=== PATIENT | male | born 1960 | race Caucasian/White ===

== ENCOUNTER 2023-03-28 09:41 | Outpatient (CLI) | payer OTHER, SELFPAY ==
--- NOTE | ~2023-03-28 | CT_ITS ---
Non-contrast CT scan of the Pelvis Clinical indication: Inguinal hernia Technique: 2.5 mm axial scans were obtained through the pelvis without intravenous or oral contrast. Dose reduction technique was used on this scan by utilizing automated exposure control and iterative reconstruction technique. The dose-length product (DLP) was 665.43 mGy-cm. Findings: Visualized bowel loops are unremarkable. No aortic aneurysm seen. No pelvic lymphadenopathy seen. Urinary bladder unremarkable. Prostate gland mildly enlarged. There are moderate bilateral fat-contai teresa inguinal hernias. No bowel involvement. No ascites. Impression: Moderate bilateral fat-containing inguinal hernias. Reviewed, dictated and finalized at location M. [facility] Impression: Moderate bilateral fat-containing inguinal hernias.
== END 2023-03-28 09:42 ==
PROVIDERS: PCP Surgery; Visit Provider Surgery
DX: K40.20 Bilateral inguinal hernia, without obstruction or gangrene, not specified as recurrent (principal)
CPT/HCPCS: 72192

== ENCOUNTER 2023-06-19 15:18 | Outpatient (CLI) | payer OTHER, SELFPAY ==
--- NOTE | 2023-06-19 15:30 | ECG_ITS ---
SEE SCANNED COPY FOR CONFIRMED REPORT MTDD
== END 2023-06-19 15:19 | disposition home or self-care (01) ==
LOC: ANHSURGERY 15:21
PROVIDERS: PCP Family Medicine; Visit Provider Surgery
DX: K40.20 Bilateral inguinal hernia, without obstruction or gangrene, not specified as recurrent (principal); I10 Essential (primary) hypertension; Z01.818 Encounter for other preprocedural examination
CPT/HCPCS: 36415; 86850; 86900; 86901; 93005

== ENCOUNTER 2023-08-24 11:31 | Outpatient (CLI) | payer OTHER, SELFPAY | END 2023-08-24 11:32 | disposition home or self-care (01) | PROVIDERS: PCP Family Medicine; Visit Provider Surgery | DX: K40.20 Bilateral inguinal hernia, without obstruction or gangrene, not specified as recurrent (principal) | CPT/HCPCS: 36415; 86850; 86900; 86901 ==

== ENCOUNTER 2023-08-28 01:50 | Day surgery (SDC) | payer OTHER, SELFPAY ==
--- NOTE | 2023-06-15 12:08 | PC.NURSE ---
Report to the Outpatient Waiting Room, entrance under the green pavilion located off [facility], at time _1000 on date __06/22/23 . Planned Procedure Time: __1200 . Time changes happen often and if your time is changed the preop area will call you the afternoon before. - You and your visitor will be asked to self-screen and do not enter if you have any COVID symptoms. - A mask is optional within the hospital at this time. Patients may have clear liquids (water, carbonated beverages, clear teas, apple juice) until 3 hours prior to surgery ( 9:00 AM)with a maximum of 20 ounces. - No food from midnight until time of surgery - Infants may have breast milk until 4 hours before surgery, infant formula 6 hours prior to surgery. - Children will be allowed to drink immediately following surgery. If applicable, please bring a bottle or sippy cup to assist with drinking. Juice, water, soda, and popsicles are readily available. For infants on formula, please bring formula the day of surgery. Pacifiers are allowed. Take the following medications with a SIP of water the morning of surgery: __METOPROLOL DO NOT STOP ANY OF YOUR OTHER PRESCRIPTION MEDICATIONS PRIOR TO SURGERY ?EXCEPT THE FOLLOWING Medications to discontinue per physician NONE Please no make-up, nail chinese, hairspray, perfume, deodorant, or body powder the day of surgery. No jewelry (including any body piercings) or valuables the day of surgery, leave them at home. Please take a shower or bath the night before, or the morning of, surgery with an antibacterial soap. Wear comfortable, loose fitting clothing. Children are encouraged to wear pajamas. - Jewelry must be removed prior to entering the operating room. Rings and piercings that are not removed may be cut off. - The hospital will not accept responsibility for valuables. - Please leave all valuables, including medications, at home the day of surgery. If you are going home after surgery, a licensed frontload driver must drive you home. - NO public transportation without another adult if you receive anesthesia. - We recommend that an adult stay with you for 24 hours following discharge. - We also recommend that you do not drive, make important decision, drink alcoholic beverages, or take any drugs that were not prescribed by your health care provider for at least 24 hours after your discharge time. Follow any additional instructions given to you from your surgeon. If you or anyone in your household have experienced Covid symptoms in the past week, please notify your surgeon or the nurse liaison at the phone number below for possible testing. Telephone instructions given to ___PATIENT and asked if any additional questions and then verbalized understanding. Patient advised to call surgeon office or pre surgery nurse liaison [phone] if any additional questions.
[2023-06-15 12:15] VITALS: BMI 30.7
[2023-08-24 11:13] VITALS: BMI 31.2
--- NOTE | 2023-08-24 11:27 | PC.NURSE ---
Report to the Outpatient Waiting Room, entrance under the green pavilion located off [facility], at time _0600_ on date _[id number]_. Planned Procedure Time: _0730_. Time changes happen often and if your time is changed the preop area will call you the afternoon before. - You and your visitor will be asked to self-screen and do not enter if you have any COVID symptoms. - A mask is optional within the hospital at this time. Patients may have clear liquids (water, carbonated beverages, clear teas, apple juice) until 3 hours prior to surgery with a maximum of 20 ounces. - No food from midnight until time of surgery Take the following medications with a SIP of water the morning of surgery: ____Metoprolol and Dronedarone DO NOT STOP ANY OF YOUR OTHER PRESCRIPTION MEDICATIONS PRIOR TO SURGERY ?EXCEPT THE FOLLOWING Medications to discontinue per physician Orlando says he was told to stop Xarelto 3 days before surgery. Date to take last xpvy___[id number] Please no make-up, nail swiss, hairspray, perfume, deodorant, or body powder the day of surgery. No jewelry (including any body piercings) or valuables the day of surgery, leave them at home. Please take a shower or bath the night before, or the morning of, surgery with an antibacterial soap. Wear comfortable, loose fitting clothing. - Jewelry must be removed prior to entering the operating room. Rings and piercings that are not removed may be cut off. - The hospital will not accept responsibility for valuables. - Please leave all valuables, including medications, at home the day of surgery. If you are going home after surgery, a licensed logging truck driver must drive you home. - NO public transportation without another adult if you receive anesthesia. - We recommend that an adult stay with you for 24 hours following discharge. - We also recommend that you do not drive, make important decision, drink alcoholic beverages, or take any drugs that were not prescribed by your health care provider for at least 24 hours after your discharge time. Follow any additional instructions given to you from your surgeon. If you or anyone in your household have experienced Covid symptoms in the past week, please notify your surgeon or the nurse liaison at the phone number below for possible testing. Telephone instructions given to ___Chris___and asked if any additional questions and then verbalized understanding. Patient advised to call surgeon office or pre surgery nurse liaison [phone] if any additional questions.
[2023-08-28] VITALS (9 sets, daily range): BP systolic 111–137; BP diastolic 67–87; PULSE 55–66; RESP 14–20; TEMP 36.1–36.3; O2SAT 96–100
[2023-08-28] MEDS: ACETAMINOPHEN 500 MG TABLET 1000 MG PO (06:30)
[2023-08-28] MEDS: LACTATED RINGERS 1,000 ML 30 ML IV CONT ×2 (06:45→09:41)
--- NOTE | 2023-08-28 07:13 | WPDANESEPPF ---
Anes - Initial Pre Proc Eval Procedure: Operation Date: 08/28/23 07:30 Proposed Procedures p Robotic Assisted Recurrent Right Inguinal Hernia Repair with Mesh, Left Inguinal Hernia Repair with Mesh - Claire Velez MD Date/Time: 08/28/23 07:13 Surgeon: Claire Velez MD Pre Op Diagnosis: Recurrent Rt Ing Hernia, Lt Ing Hernia Patient Data Age: 63 Gender: M Height: 1.73 m Weight: 94.15 kg Last Vital Signs Temp 97.4 F L 08/28/23 06:56 Pulse 66 08/28/23 06:56 Resp 16 08/28/23 06:56 BP 132/87 08/28/23 06:56 Pulse Ox 98 08/28/23 06:56 O2 Del Method Room Air 08/28/23 06:56 Allergies Allergy/AdvReac Type Severity Reaction Status Date / Time No Known Allergies Allergy Verified 08/28/23 06:18 Home Medications Medication Instructions Recorded Confirmed Type naproxen sodium 220 mg tablet 440 mg PO DAILY 07/11/22 08/28/23 History omeprazole magnesium 20 mg 20 mg PO DAILY 07/11/22 08/28/23 History tablet,delayed release fluticasone propionate 50 See Rx Instructions .Route 03/30/23 08/28/23 Rx mcg/actuation nasal .COMPLEX #48 grams spray,suspension atorvastatin 40 mg tablet 40 mg PO DAILY #90 tabs 05/03/23 08/28/23 Rx metoprolol succinate 50 mg See Rx Instructions .Route 08/01/23 08/28/23 Rx tablet,extended release 24 hr .COMPLEX #90 tabs dronedarone 400 mg tablet (Multaq) 400 mg PO BID 08/17/23 08/28/23 History losartan 100 mg tablet 100 mg PO DAILY 08/17/23 08/28/23 History rivaroxaban 20 mg tablet (Xarelto) 20 mg PO DAILY 08/17/23 08/28/23 History Patient hx anesthesia problems: none Family hx anesthesia problems: none Results Review: All pre-operative results and documents have been reviewed as part of the pre-operative evaluation. FORMERLY [facility] Past Medical History Medical History Essential (primary) hypertension Gastro-esophageal reflux disease with esophagitis, without bleeding Occlusion and stenosis of bilateral carotid arteries Prediabetes Pure hypercholesterolemia, unspecified Surgical History Surgical History Hx of hernia repair [place] teeth extracted Family History Family History Father A-fib Social History Social History Smoking status: Never smoker Alcohol intake: never Substance use: never Substance use type: does not use Do You Feel Safe in your Home?: Yes Lack of Transportation: No Lack of Food: Never True Current Housing: I Have Housing Concerned About Future Housing: No Difficulty Paying Gas/Electric Bills: No Difficulty Paying for Meds: No Currently Unemployed: No Education: High School Diploma/GED Difficulty w/ Childcare or Family Care: No Living arrangements: with family Occupation/Education: occupation Additional occupation/education comments: bean Gender identity (if verbalized by the patient): Male Sexual Orientation (if Verbalized by the Patient): Straight or Heterosexual Spiritual care concerns: No Anes - Eval Final PreProcedure Day of Procedure 08/28/23 07:13 Patient weight: overweight Heart: regular rate and rhythm Lungs: clear to auscultation Airway: Mallampati scale class III Neurological: alert and oriented Last oral intake: >/= 8 hours ASA classification: III Emergent: no Anesthetic plan: proceed Anesthesia type and monitoring: general and standard monitoring Results Review: All pre-operative results and documents have been reviewed as part of the pre-operative evaluation. HTN, hyperlipidemia, A fib by holter 16%, carotid w less than 50% plaque. 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 Informed Consent: The patient's anesthetic plan and its attendant risks and benefits were discussed with the patient/fa
[2023-08-28] MEDS: KETOROLAC 15 MG/ML VIAL (*BKC) IV PUSH (07:20)
--- NOTE | 2023-08-28 07:21 | PM.IMHP ---
H&P: HPI History of Present Illness Date/Time: 08/28/23 07:21 Chief Complaint: bilateral inguinal hernia, right recurrent Narrative: Orlando is a 63 y/o male who presents to the office for evaluation of an abdominal hernia at the request of Dr. Solomon. He reports history of right inguinal hernia repair many years ago. He feels as if the mesh is protruding out and he has to push the area back in, this causes a lot of discomfort as well. He does also notice nausea when he feels the bulge is protruding out. He does also have a small abdominal hernia that he states is asymptomatic. Pt had CT showing recurrent RIH and LIH. Review of Systems Review of Systems: All systems reviewed & are unremarkable except as noted in HPI and below PMFSH Past Medical History Medical History Essential (primary) hypertension Gastro-esophageal reflux disease with esophagitis, without bleeding Occlusion and stenosis of bilateral carotid arteries Prediabetes Pure hypercholesterolemia, unspecified Surgical History Surgical History Hx of hernia repair [place] teeth extracted Family History Family History Father A-fib Social History Social History Smoking status: Never smoker Alcohol intake: never Substance use: never Substance use type: does not use Do You Feel Safe in your Home?: Yes Lack of Transportation: No Lack of Food: Never True Current Housing: I Have Housing Concerned About Future Housing: No Difficulty Paying Gas/Electric Bills: No Difficulty Paying for Meds: No Currently Unemployed: No Education: High School Diploma/GED Difficulty w/ Childcare or Family Care: No Living arrangements: with family Occupation/Education: occupation Additional occupation/education comments: bean Gender identity (if verbalized by the patient): Male Sexual Orientation (if Verbalized by the Patient): Straight or Heterosexual Spiritual care concerns: No Meds Home Medications and Allergies Home Medications Medication Instructions Recorded Confirmed Type naproxen sodium 220 mg tablet 440 mg PO DAILY 07/11/22 08/28/23 History omeprazole magnesium 20 mg 20 mg PO DAILY 07/11/22 08/28/23 History tablet,delayed release fluticasone propionate 50 See Rx Instructions .Route 02/22/24 07/22/24 Rx mcg/actuation nasal .COMPLEX #48 grams spray,suspension atorvastatin 40 mg tablet 40 mg PO DAILY #90 tabs 05/03/23 08/28/23 Rx metoprolol succinate 50 mg See Rx Instructions .Route 08/01/23 08/28/23 Rx tablet,extended release 24 hr .COMPLEX #90 tabs dronedarone 400 mg tablet (Multaq) 400 mg PO BID 08/17/23 08/28/23 History losartan 100 mg tablet 100 mg PO DAILY 08/17/23 08/28/23 History rivaroxaban 20 mg tablet (Xarelto) 20 mg PO DAILY 08/17/23 08/28/23 History Allergies Allergy/AdvReac Type Severity Reaction Status Date / Time No Known Allergies Allergy Verified 08/28/23 06:18 Vital Signs Vital Signs - 24 hr 08/28/23 06:56 Temperature 36.3 C L Pulse Rate 66 Respiratory Rate 16 Blood Pressure 132/87 Pulse Oximetry 98 Oxygen Delivery Room Air Exam Const: General: cooperative, comfortable and no acute distress Resp: Auscultation: clear to auscultation bilaterally Cardio: Rate: regular rate Rhythm: regular rhythm GI: Inspection: normal to inspection GI Palp: No abdominal tenderness and Yes Soft to palpation Other: bilateral IH R>L Assessment and Plan Assessment and plan (1) Recurrent right inguinal hernia: Code(s): K40.91 - Unilateral inguinal hernia, without obstruction or gangrene, recurrent Status: Acute Assessment and Plan: will setup for robotic assisted repair c mesh (2) Left inguinal hernia: Code(s): K40.90 - Unilateral inguin
--- NOTE | 2023-08-28 07:24 | WPDHPUPDATE1 ---
History and Physical Update Update Date/Time: 08/28/23 07:24 History and Physical has been reviewed, including an updated exam of the patient. There are NO changes in the patient's condition. Risks, benefits, and alternatives have been discussed and questions answered. Patient agrees to proceed with procedure.
[2023-08-28] MEDS: ceFAZolin 2 GM/D5W 50 ML 2 GM/50 ML BAG IVPB (07:28)
[2023-08-28] MEDS: BUPIVACAINE/EPINEPHRINE 0.5% 10 ML VIAL 30 ML INFILTRATE (08:05)
--- NOTE | 2023-08-28 09:58 | W.PM.PROC2 ---
Procedure Note - Detailed Date of Procedure 08/28/23 Pre-op Diagnosis Recurrent Rt Ing Hernia, Lt Ing Hernia Post-op Diagnosis Other (left pantaloon inguinal hernia, right indirect hernia) Procedure Performed robotic assisted recurrent right inguinal hernia repair with mesh, robotic assisted left inguinal hernia repair with mesh Surgeon Claire Velez MD Anesthesia General Indications Pt is a 63 y/o M presenting c few mo h/o bulging, discomfort in R groin. Patient has had previous right inguinal hernia repair with mesh many years ago. Workup, including imaging, was significant for recurrent right inguinal hernia, as well left inguinal. Findings L pantaloon hernia, R recurrent direct hernia Description of Procedure Patient was brought into the operating room and placed in the supine position. After adequate induction of general anesthesia, the patient was prepped and draped in normal sterile fashion. A time-out was then done to verify the patient's identity, as well as the procedure being performed. I began by making a 8 mm incision in the supraumbilical region, a Veress needle was then placed into the peritoneal cavity. CO2 gas was then insufflated and after adequate pneumoperitoneum was achieved, the Veress needle was removed. I then placed an 8 mm trocar through this incision. I then placed the endoscope through this trocar site and under direct visualization placed 2 further 8 mm ports in the right and left mid abdomen. The [place] robot was then docked to the 3 trocar sites. I then scrubbed out and went to the robotic console. Upon examining the pelvis, it was noted that the patient had a moderate sized recurrent right inguinal hernia. The left side was examined and a moderate sized hernia defect was noted. I began by making a preperitoneal flap approximately 6 cm superior to the right sided defect. This flap was carried medially past the umbilical ligaments and laterally to the transversalis. It then began dissection of my medial compartment taking this down to the pubic tubercle. Upon dissection of this area, a moderate-sized direct hernia was encountered. I was able to dissect and reduce this direct hernia. I then began the lateral dissection taking this down to the transversalis fascia. Once these compartments were achieved, I began dissection around the cord structures. No indirect hernia was noted at this point. I then went ahead and placed a large piece of 3D Max mesh into the abdominal cavity. The mesh was carefully positioned, centering the center of the mesh over the direct defect. Once this was done, was very satisfied with the overlap of our repair. Using 3-0 Vicryl sutures, I tacked the mesh medially to Jacob's ligament. Two lateral sutures were placed from the mesh to the transversalis fascia. I then began on the left side by making a preperitoneal flap approximately 6 cm superior to the left sided defect. This flap was carried medially past the umbilical ligaments and laterally to the transversalis. A moderate-sized direct hernia was again noted at this point. I was able to dissect and reduce the moderate-sized direct hernia. I then began the lateral dissection taking this down to the transversalis fascia. Once these compartments were achieved, I began dissection around the cord structures. A small indirect hernia was noted at this point. Using careful dissection, was able to reduce indirect hernia sac off the cord structures. Once this was adequately done, I went ahead and placed a large piece of 3D Max mesh into the abdominal cavity. The mesh was carefully positioned, centering the center of the mesh over the direct defect. Once this was done, was very satisfied with our repair. Using 3-0 Vicryl sutures, I tacked the mesh medially to Jacob's ligament. Two lateral sutures were placed from the mesh to the transversalis fascia.I then closed the peritoneal flap bilaterally with running 2.0 V Lock suture x 2. The abdom
[2023-08-28] MEDS: fentaNYL CITRATE INJ (*CRX) 100 MCG/2 ML VIAL 25 MCG IV PUSH ×2 (10:10→10:16)
[2023-08-28] MEDS: oxyCODONE HCL (*CRX) 5 MG TAB IR PO (10:37)
== END 2023-08-28 11:25 | disposition home or self-care (01) ==
PROVIDERS: PCP Family Medicine; Visit Provider Surgery
PROC: 8E0Y4CZ Robotic Assisted Procedure of Lower Extremity, Percutaneous Endoscopic Approach (ICD-10-PCS; CPT 49650; principal; 2023-08-28 07:30)
DX: K40.91 Unilateral inguinal hernia, without obstruction or gangrene, recurrent (principal); K40.90 Unilateral inguinal hernia, without obstruction or gangrene, not specified as recurrent; E78.00 Pure hypercholesterolemia, unspecified; I10 Essential (primary) hypertension; K21.00 Gastro-esophageal reflux disease with esophagitis, without bleeding; I65.23 Occlusion and stenosis of bilateral carotid arteries; R73.03 Prediabetes
CPT/HCPCS: 49651; 49650; S2900; A9270; C1781; J0690; J1100; J1885; J2250; J2405; J2704; J3010; J7030; J7120

== ENCOUNTER 2024-06-10 02:10 | Day surgery (SDC) | payer OTHER, SELFPAY ==
[2024-05-28 14:54] VITALS: BMI 30.2
--- NOTE | 2024-05-28 15:04 | PC.NURSE ---
Report to the Outpatient Waiting Room, entrance under the green pavilion located off [facility], at time ___1000___ on date ___06/10/24___. Planned Procedure Time: ___1200____.? Time changes happen often and if your time is changed the preop area will call you the afternoon before. - You and your visitor will be asked to self-screen and do not enter if you have any COVID symptoms. Please call surgeon if you need to reschedule. - A mask is optional within the hospital at this time. Patients may have clear liquids (water, carbonated beverages, clear teas, apple juice) until 3 hours prior to surgery with a maximum of 20 ounces. - No food from midnight until time of surgery and no smoking, or chewing tobacco (or any form of nicotine). No chewing gum, candy or mints. Take only the following medications with a SIP of water on the morning of surgery: ____dronedarone, metoprolol___ DO NOT STOP ANY OF YOUR OTHER PRESCRIPTION MEDICATIONS PRIOR TO SURGERY EXCEPT THE FOLLOWING Hold all vitamins and supplements for 3 days per anesthesiologist. Medications to discontinue per physician ____please HOLD naproxen and rivaroxaban per surgeons instructions; and please HOLD losartan the morning of surgery Please no make-up, nail greenlandic, hairspray, perfume, deodorant, or body powder the day of surgery.? No jewelry (including any body piercings) or valuables the day of surgery, leave them at home.? Please take a shower or bath the night before, or the morning of, surgery with an antibacterial soap.? Wear comfortable, loose fitting clothing.? - Jewelry must be removed prior to entering the operating room.? Rings and piercings that are not removed may be cut off. - The hospital will not accept responsibility for valuables.? - Please leave all valuables, including medications, at home the day of surgery. If you are going home after surgery, a licensed national dedicated truck driver must drive you home.? - NO public transportation without another adult if you receive anesthesia. - We recommend that an adult stay with you for 24 hours following discharge. - We also recommend that you do not drive, make important decision, drink alcoholic beverages, or take any drugs that were not prescribed by your health care provider for at least 24 hours after your discharge time. Follow any additional instructions given to you from your surgeon. Telephone instructions given to ___Jono Perry ___and asked if any additional questions and then verbalized understanding. Patient advised to call surgeon office or pre surgery nurse liaison [phone] if any additional questions.
[2024-06-10] VITALS (9 sets, daily range): BP systolic 95–142; BP diastolic 58–83; PULSE 49–59; RESP 15–20; TEMP 36.7–37; O2SAT 95–100
--- OUTSIDE RECORDS SUMMARY | 2024-06-10 02:16 | XMS_ITS | Referral Summary ---
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 Gender Identity Not on file Sexual Orientation Not on file Last Filed Vital Signs Vital Sign Reading Time Taken Comments Blood Pressure 147/90 09/11/2019 6:40 AM CDT Pulse 68 09/11/2019 6:40 AM CDT Temperature 36.9 C (98.4 F) 09/11/2019 6:40 AM CDT Respiratory Rate - - Oxygen Saturation 98% 09/11/2019 6:40 AM CDT Inhaled Oxygen Concentration - - Weight 92.5 kg (204 lb) 09/11/2019 6:40 AM CDT Height 172.7 cm (5' 8 ) 09/11/2019 6:40 AM CDT Body Mass Index 31.02 09/11/2019 6:40 AM CDT Plan of Treatment Not on file Insurance [facility] Care Teams Nurse Recruiter Relationship Specialty Start Date End Date Jaylen Solomon MD [address] [place] [id number] PCP - General Family Medicine 08/02/19
--- OUTSIDE RECORDS SUMMARY | 2024-06-10 02:16 | XMS_ITS | Clinical Summary ---
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
--- OUTSIDE RECORDS SUMMARY | 2024-06-10 02:16 | XMS_ITS | Clinical Summary ---
Author Organization 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 Gender Identity Not on file Sexual Orientation Not on file Plan of Treatment Health Maintenance Due Date Last Done Comments Colorectal Cancer Screening Colonoscopy (10 Years) 1962 Annual Physical 1965 Hepatitis C 01/05/1980 DTaP, Tdap and Td Vaccines ( 1 - Tdap) 1981 Pneumococcal Vaccine: 50+ Ye ars (1 of 1 - PCV) 01/05/2012 Zoster Vaccines (1 of 2) 01/05/2012 COVID-19 Vaccine ( - 2023-2 5 season) 2023 RSV Immunization or 60+ Years (1 - 1-dose 75+ series) 2037 Meningococcal B Vaccine Aged Out No l onger eligible based on patient's age to complete this topic Meningococcal Vaccine Aged Out No devendra ronald eligible based on patient's age to complete this topic RSV Immunizations Under 20 Months Aged Out No longer eligible based on patient's age to complete this topic Care Teams Plumbing Warehouse Helper Relationship Specialty Start Date End Date Jaylen Solomon MD [address] [place] [phone] PCP - General FAMILY PRACTICE 05/31/23
--- OUTSIDE RECORDS SUMMARY | 2024-06-10 02:16 | XMS_ITS | Encounter Summary ---
Author Organization [facility] Care Team Providers Care Pmo Manager Name Role Phone No, Physician Primary Care Provider [phone] Jaylen Solomon MD Primary Care Provider [phone] Encounter Details Date Type Department Care Team (Latest Contact Info) Description 10/12/2016 Orders Only [facility]INCON[facility] ProviderSudhakar MD [address] [place] [id number] Social History Tobacco Use Types Packs/Day Years Used Date Smoking Tobacco: Never Assessed Sex and Gender Information Value Date Recorded Sex Assigned at Not on file 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 us Historical Provider Final Res ult documented in this encounter Visit Diagnoses Not on filedocumented in this encounter Care Teams Pmo Manager Relationship Specialty Start Date End Date No, Physician PCP - General 06/17/19 08/01/19 Jaylen Solomon MD [address] [place] [id number] PCP - General Family Medicine 08/02/19 documented as of this encounter
[2024-06-10] MEDS: ACETAMINOPHEN 500 MG TABLET 1000 MG PO (11:05)
[2024-06-10] MEDS: KETOROLAC 15 MG/ML VIAL (*BKC) IV PUSH (11:12)
--- NOTE | 2024-06-10 11:43 | P.PNAN_ITS ---
Anes - Initial Pre Proc Eval Procedure: Operation Date: 06/10/24 12:00 Proposed Procedures p Open Recurrent Left Inguinal Inguinal Hernia Repair with Mesh - Claire Velez MD Date/Time: 06/10/24 11:43 Surgeon: Claire Velez MD Pre Op Diagnosis: Recurrent Left Ing Hernia Patient Data Age: 64 Gender: M Height: 1.73 m Weight: 90 kg Allergies Allergy/AdvReac Type Severity Reaction Status Date / Time No Known Allergies Allergy Verified 06/10/24 10:20 Home Medications ?Medication ?Instructions ?Recorded ?Confirmed ?Type naproxen sodium 220 mg tablet 440 mg PO DAILY 07/11/22 06/10/24 History fluticasone propionate 50 See Rx Instructions .Route 03/30/23 06/10/24 Rx mcg/actuation nasal .COMPLEX #48 grams spray,suspension dronedarone 400 mg tablet (Multaq) 400 mg PO BID 08/17/23 06/10/24 History atorvastatin 40 mg tablet 40 mg PO DAILY #90 tabs 02/15/24 06/10/24 Rx losartan 100 mg tablet 100 mg PO DAILY #90 tabs 02/15/24 06/10/24 Rx metoprolol succinate 50 mg See Rx Instructions .Route 02/15/24 06/10/24 Rx tablet,extended release 24 hr .COMPLEX #90 tabs omeprazole 20 mg capsule,delayed 20 mg PO DAILY #90 caps 02/16/24 06/10/24 Rx release rivaroxaban 20 mg tablet (Xarelto) 20 mg PO DAILY #90 tabs 03/12/24 06/10/24 Rx Patient hx anesthesia problems: none Family hx anesthesia problems: none Results Review: All pre-operative results and documents have been reviewed as part of the pre- operative evaluation. [facility] Past Medical History Medical History Occlusion and stenosis of bilateral carotid arteries Gastro-esophageal reflux disease with esophagitis, without bleeding Prediabetes Pure hypercholesterolemia, unspecified Essential (primary) hypertension Surgical History Surgical History H/O inguinal hernia repair 08/28/23 robotic assisted recurrent right inguinal hernia repair with mesh, robotic assisted left inguinal hernia repair with mesh on [place] teeth extracted Hx of hernia repair Family History Family History Father A-fib Social History Social History Smoking status: Never smoker Alcohol intake: never Substance use: never Substance use type: does not use Do You Feel Safe in your Home?: Yes Lack of Transportation: No Lack of Food: Never True Current Housing: I Have Housing Concerned About Future Housing: No Difficulty Paying Gas/Electric Bills: No Difficulty Paying for Meds: No Currently Unemployed: No Education: High School Diploma/GED Difficulty w/ Childcare or Family Care: No Living arrangements: with family Occupation/Education: occupation Additional occupation/education comments: bean Gender identity (if verbalized by the patient): Male Sexual Orientation (if Verbalized by the Patient): Straight or Heterosexual Spiritual care concerns: No Anes - Eval Final PreProcedure Day of Procedure 06/10/24 11:43 Patient weight: overweight Heart: irregular rhythm Lungs: clear to auscultation Airway: Mallampati scale class II Neurological: alert and oriented Last oral intake: >/= 8 hours ASA classification: III Emergent: no Anesthetic plan: proceed Anesthesia type and monitoring: general ETT and standard monitoring Results Review: All pre-operative results and documents have been reviewed as part of the pre- operative evaluation. Informed Consent: The patient's anesthetic plan and its attendant risks and benefits were discussed with the patient/family/POA. Questions were solicited and answers provided to the satisfaction of the patient/family/POA.
--- NOTE | 2024-06-10 12:13 | P.HP_ITS ---
H&P: HPI History of Present Illness Date/Time: 06/10/24 12:13 Chief Complaint: recurrent left inguinal hernia Narrative: Jono returns for an evaluation of a recurrent hernia. He states about 2 months ago, he noticed a bulge on the left side. He is experiencing pain and burning with heavy lifting. He denies a recurrent bulge on the right side. He is s/p robotic assisted recurrent right inguinal hernia repair with mesh, robotic assisted left inguinal hernia repair with mesh on 08/28/23. Review of Systems Review of Systems: All systems reviewed & are unremarkable except as noted in HPI and below PMFSH Past Medical History Medical History Occlusion and stenosis of bilateral carotid arteries Gastro-esophageal reflux disease with esophagitis, without bleeding Prediabetes Pure hypercholesterolemia, unspecified Essential (primary) hypertension Surgical History Surgical History H/O inguinal hernia repair 08/28/23 robotic assisted recurrent right inguinal hernia repair with mesh, robotic assisted left inguinal hernia repair with mesh on [place] teeth extracted Hx of hernia repair Family History Family History Father A-fib Social History Social History Smoking status: Never smoker Alcohol intake: never Substance use: never Substance use type: does not use Do You Feel Safe in your Home?: Yes Lack of Transportation: No Lack of Food: Never True Current Housing: I Have Housing Concerned About Future Housing: No Difficulty Paying Gas/Electric Bills: No Difficulty Paying for Meds: No Currently Unemployed: No Education: High School Diploma/GED Difficulty w/ Childcare or Family Care: No Living arrangements: with family Occupation/Education: occupation Additional occupation/education comments: bean Gender identity (if verbalized by the patient): Male Sexual Orientation (if Verbalized by the Patient): Straight or Heterosexual Spiritual care concerns: No Meds Home Medications and Allergies Home Medications ?Medication ?Instructions ?Recorded ?Confirmed ?Type naproxen sodium 220 mg tablet 440 mg PO DAILY 07/11/22 06/10/24 History fluticasone propionate 50 See Rx Instructions .Route 03/30/23 06/10/24 Rx mcg/actuation nasal .COMPLEX #48 grams spray,suspension dronedarone 400 mg tablet (Multaq) 400 mg PO BID 08/17/23 06/10/24 History atorvastatin 40 mg tablet 40 mg PO DAILY #90 tabs 02/15/24 06/10/24 Rx losartan 100 mg tablet 100 mg PO DAILY #90 tabs 02/15/24 06/10/24 Rx metoprolol succinate 50 mg See Rx Instructions .Route 02/15/24 06/10/24 Rx tablet,extended release 24 hr .COMPLEX #90 tabs omeprazole 20 mg capsule,delayed 20 mg PO DAILY #90 caps 02/16/24 06/10/24 Rx release rivaroxaban 20 mg tablet (Xarelto) 20 mg PO DAILY #90 tabs 03/12/24 06/10/24 Rx Allergies Allergy/AdvReac Type Severity Reaction Status Date / Time No Known Allergies Allergy Verified 06/10/24 10:20 Vital Signs Vital Signs - 24 hr 06/10/24 10:20 Temperature 36.7 C Pulse Rate 58 L Respiratory Rate 20 Blood Pressure 142/83 H Pulse Oximetry 98 Oxygen Delivery Room Air Exam Const: General: cooperative, comfortable and no acute distress Resp: Auscultation: clear to auscultation bilaterally Cardio: Rate: regular rate Rhythm: regular rhythm GI: Inspection: normal to inspection and visible herniation GI Palp: No abdominal tenderness, Yes Soft to palpation and Yes Hernia present Other: recurrent LIH - reducible Assessment and Plan Assessment and plan (1) Recurrent left inguinal hernia: Code(s): K40.91 - Unilateral inguinal hernia, without obstruction or gangrene, recurrent Status: Acute Assessment and Plan: will setup for open repair c mesh
--- NOTE | 2024-06-10 12:15 | WPDHPUPDATE1 ---
History and Physical Update Update Date/Time: 06/10/24 12:15 History and Physical has been reviewed, including an updated exam of the patient. There are NO changes in the patient's condition. Risks, benefits, and alternatives have been discussed and questions answered. Patient agrees to proceed with procedure.
[2024-06-10] MEDS: ceFAZolin 2 GM/D5W 50 ML 2 GM/50 ML BAG IVPB (12:19)
[2024-06-10] MEDS: BUPIVACAINE/EPINEPHRINE 0.5% 30 ML VIAL INFILTRATE (12:42)
[2024-06-10] MEDS: LACTATED RINGERS 1,000 ML 30 ML IV CONT ×2 (14:02)
--- NOTE | 2024-06-10 14:02 | W.PM.PROC2 ---
Procedure Note - Detailed Date of Procedure 06/10/24 Pre-op Diagnosis Recurrent Left Inguinal Hernia Post-op Diagnosis Same Procedure Performed open repair recurrent left inguinal hernia plan large [facility]HS mesh Surgeon Claire Velez MD Flying I Instructor MD Tawanda Anesthesia General and Local Indications 64-year-old male presenting to the office with recurrent left inguinal hernia after doing some heavy lifting. Patient previous robotic assisted inguinal hernia repair mesh. Findings Moderate size recurrent indirect left inguinal, large lipoma the cord Description of Procedure The patient was taken to the operating room and placed in the supine position. After adequate induction general anesthesia, the patient was prepped and draped in the normal sterile fashion. A time-out was then to verify the patient's identity, as well as the procedure being performed. Please note that Dr. Josr Neff was present and assisted with the entirety of the case given the difficult nature of the recurrence. His assistance was instrumental in identifying all the critical structures and dissection. He also assisted with the correct placement of the mesh. I began by localizing the area in the left inguinal region. Incision was then made in the left groin. This was carried down through the dermis and into the subcutaneous tissue. Subcutaneous tissue including Jerrod's fascia was then incised to the level of the external oblique fascia. I then opened the external oblique fascia from the superficial ring laterally. Once incised I was able to reflect the fascia both superiorly and inferiorly. The ileo inguinal nerve was sacrificed at this point. Once proper exposure was obtained, I was able to get around the cord structures at the level of the pubic tubercle. There was noted to be a very large lipoma cord. Using careful dissection, this lipoma was dissected and excised. There was some difficulty confirming the anatomy in this area given the previous repair. Dr. Neff assisted in identifying all critical structures. At this point, the indirect sac was identified and dissected. Once this was done, we were able to reduce the sac back into the preperitoneal space. The pelvic floor and this area was noted to be quite weak. Given these findings, the decision was made to repair with [facility]HS mesh. We dissected out the preperitoneal plane bluntly. The previously placed mesh was noted to be adhered to the muscle. We did not encounter the previous mesh. We were able to create a space in the preperitoneal plane to allow placement of the deep mesh disc. The large [facility]HS mesh was then placed with the deep disc laying out nicely in the preperitoneal space. The superficial mesh was then placed deep to the external oblique to recreate the pelvic floor. The tails were cut to allow the cord structures to run through tension-free. Interrupted 0 Ethibond sutures were used to position this mesh. This was done superior to the transversalis fascia and inferiorly to the ileo inguinal ligament. Once completed, the mesh had good overlap of all potential defects. The mesh was noted to be completely tension-free. Further local anesthetic was placed. The external oblique aponeurosis was then closed with a running 3-0 Vicryl suture. The subcutaneous tissue, including Jerrod's fascia, was closed with 3-0 Vicryl suture. The skin was closed with 4-0 Monocryl subcuticular suture. The patient tolerated the procedure well was extubated postoperatively. He will be sent to the recovery room in stable condition. Estimated Blood Loss 10 Pathology None sent Complications No immediate complications Condition Stable Disposition PACU [facility] Billing Surgery - Charge Forward: Surgery Billing
[2024-06-10] MEDS: oxyCODONE HCL (*CRX) 5 MG TAB IR PO (15:33)
== END 2024-06-10 16:05 | disposition home or self-care (01) ==
PROVIDERS: PCP Family Medicine; Visit Provider Surgery
PROC: (CPT 49520; principal; 2024-06-10 12:00)
DX: K40.91 Unilateral inguinal hernia, without obstruction or gangrene, recurrent (principal); D17.6 Benign lipomatous neoplasm of spermatic cord
CPT/HCPCS: 49520; A9270; C1781; J0690; J1100; J1885; J2003; J2250; J2405; J2704; J3010; J7120